=== PATIENT | male | born 1980 | race Caucasian/White ===

== ENCOUNTER 2020-05-14 09:49 | Emergency (ER) | payer OTHER, SELFPAY ==
--- NOTE | 2020-05-14 09:59 | DI.RAD.S_ITS ---
PROCEDURE: XR CHEST 1V INDICATIONS: Hiccups, vomiting, chest pain TECHNIQUE: One view of the chest was acquired. COMPARISON: None. FINDINGS: Surgical changes and devices: None. Lungs and pleura: Lungs are clear. No pleural effusions or pneumothorax. Mediastinum: Mediastinal contours appear normal. Heart size is normal. Bones and chest wall: No suspicious bony lesions. Overlying soft tissues appear unremarkable. IMPRESSION: No acute cardiopulmonary pathology. Dictated by: Theodore Chaudhary M.D. on 05/14/2020 at 9:24 Approved by: Theodore Chaudhary M.D. on 05/14/2020 at 9:37
[2020-05-14 10:02] VITALS: PULSE 143; RESP 15; TEMP 36.1; O2SAT 98; BMI 34.7
[2020-05-14 10:16] LABS: Add Manual Diff / Slide Review NO; Basophils Absolute Auto 0 /uL (0-100); Basophils Percent Auto 0.4 % (0-2); Eosinophils Absolute Auto 0 /uL (0-450); Eosinophils Percent Auto 0.1 % (2-4); Hematocrit 42.1 % (41-53); Hemoglobin 14.9 g/dL (13.5-17.5); Lymphocytes Absolute Auto 2600 /uL (1100-4500); Lymphocytes Percent Auto 31.8 % (25-40); Mean Corpuscular HGB Conc 35.4 % (30-36); Mean Corpuscular Hemoglobin 29.5 PG (26-34); Mean Corpuscular Volume 83.2 fL (80-100); Monocytes Absolute Auto 700 /uL (0-900); Monocytes Percent Auto 7.9 % (3-14); Neutrophils Absolute Auto 5000 /uL (1500-7000); Neutrophils Percent Auto 59.8 % (50-75); Platelet Count 352 X10^3/uL (150-400); Red Blood Cell Count 5.06 X10^6/uL (4.5-5.9); Red Cell Distribution Width 13.7 % (11.6-14.8); White Blood Cell Count 8.3 X10^3/uL (4.5-11.0)
--- NOTE | 2020-05-14 10:31 | ED.GENADULT ---
HPI - General Adult General Chief complaint: Abdominal Pain Stated complaint: 3 days hiccups/vomiting/nausea Time Seen by Provider: 05/14/20 09:58 Source: patient Mode of arrival: Ambulatory Limitations: no limitations History of Present Illness HPI narrative: Patient is a 40-year-old male here for evaluation of nausea and hiccups and vomiting for the past couple days. He states that symptoms very similar to this occurred 2 years ago. He states he was seen in outside facility and was ultimately told that it was related to marijuana. He has since stopped smoking marijuana his symptoms have resolved until a couple days ago when the symptoms returned. He states he is not smoking marijuana. They did ask her after drinking some vodka. He states that every time that he eats he develops nausea and then hiccups. He is not having any bowel changes. He is not on any reflux medications. He is not having any chest pain. He did try drinking some baking soda and water and vomited afterwards. Related Data Previous Rx's Medication Instructions Recorded esomeprazole magnesium 20 mg PO DAILY #30 cap 05/14/20 ondansetron 4 mg PO Q6H PRN #14 tab 05/14/20 Allergies Allergy/AdvReac Type Severity Reaction Status Date / Time No Known Drug Allergies Allergy Verified 05/14/20 10:07 Review of Systems Constitutional Constitutional: Denies fever(s) Cardiovascular Cardiovascular: Denies chest pain and Denies dyspnea Respiratory Respiratory: Denies dyspnea Gastrointestinal Gastrointestinal: Denies abdominal pain, Denies change in bowel habits, Reports nausea and Reports vomiting Comments: Hiccups Genitourinary Genitourinary: Denies dysuria Genitourinary: Denies dysuria Musculoskeletal Musculoskeletal: Denies arthralgias and Denies myalgias Integumentary/Breasts Skin/Breast: Denies rash Neurologic Neurologic: Denies behavioral changes Psychiatric Psychiatric: Denies behavioral changes Hematologic/Lymphatic On Anticoagulants: No Allergic/Immunologic Allergic/Immunologic: Denies urticaria Patient History Medical History Patient denies medical problems Social History Smoking Status: Never smoker Smoking Status: Never smoker alcohol intake frequency: 0-2 drinks per day Substance Use Type: marijuana Exam Initial Vital Signs Initial Vital Signs: Vital Signs Temperature 97.0 F L 05/14/20 10:02 Pulse Rate 143 H 05/14/20 10:02 Respiratory Rate 15 05/14/20 10:02 Pulse Oximetry 98 05/14/20 10:02 Const General: cooperative and comfortable Limitations: mental status not altered HENNV Head: normal to inspection and normocephalic Resp Effort & Inspection: normal respiratory effort Auscultation: clear to auscultation bilaterally Cardio Rate: regular rate Rhythm: regular rhythm GI Inspection: non-distended Palpation: soft and No tender Skin Lesions: no lesions Rashes: no rashes Neuro General: patient alert and patient awake Cognition: normal cognition Speech: speech normal Extrem General: normal to inspection and capillary refill normal Psych Appearance: grossly normal and well kempt Course Orders Ordered: ED Orders 05/14/20 09:59 XR chest 1V Stat 05/14/20 10:08 Complete Blood Count AUTO DIFF Stat Comprehensive Metabolic Panel Stat Lipase Stat Troponin & CK Cardiac Panel Stat Vital Signs Vital signs: Vital Signs - 8 hr 05/14/20 10:02 05/14/20 10:33 05/14/20 10:35 Temperature 97.0 F L Pulse Rate 143 H 52 L 53 L Respiratory Rate 15 15 Blood Pressure 149/99 H Pulse Oximetry 98 99 Medical Decision Making Lab Data Lab results reviewed: Yes I reviewed the patient's lab results. Result diagrams: 05/14/20 10:08 05/14/20 10:08 Labs: Lab Results 05/14/20 05/14/20 Range/Units 10:08 10:08 WBC 8.3 (4.5-11.0) X10^3/uL RBC 5.06 (4.5-5.9) X10^6/uL Hgb 14.9 (13.5-17.5) g/dL Hct 42.1 (41-53) % MCV 83.2 (80-100) fL MCH 29.5 (26-34) PG MCHC 35.4 (30-36) % RDW 13.7 (11.6-14.8) % Plt Count 352 (150-400) X10^3/uL Neut % (Auto) 59.8 (50-75) % Lymph % (Auto) 31.8 (25-40) % [place] % (Auto) 7.9 (3-14) % Eos % (Auto) 0.1 L (2-4) % Baso % (Auto) 0.4 (0-2) % Neut # (Auto) 5000 (8954-9916) /uL Lymph # (Auto) 2600 (9208-8516) /uL [place] # (Auto) 700 (0-900) /uL Eos # (Auto) 0 (0-450) /uL Baso # (Auto) 0 (0-100) /uL Sodium 137 (137-145) mmol/L Potassium 3.4 (3.4-5.1) mmol/L Chloride 99 (98-107) mmol/L Carbon Dioxide 30 (22-32) mmol/L BUN 20 (9-20) mg/dL Creatinine 0.96 (0.66-1.25) mg/dL Estimated GFR > 60.0 (>60) mL/min BUN/Creatinine Ratio 20.8 (6-22) Glucose 124 H (70-100) mg/dL Calcium 9.9 (8.4-10.2) mg/dL Total Bilirubin 1.1 (0.2-1.3) mg/dL AST 23 (17-59) IU/L ALT 18 (<50) IU/L Alkaline Phosphatase 69 (38-126) U/L Total Creatine Kinase 72 (55-170) U/L CK-MB (CK-2) TNP CK-MB (CK-2) Rel Index TNP Troponin I < 0.012 (0.01-0.034) ng/mL Total Protein 8.2 (6.3-8.2) g/dL Albumin 4.8 (3.5-5.0) g/dL Globulin 3.4 (1.7-4.1) g/dL Albumin/Globulin Ratio 1.4 (1.0-2.8) Lipase 45 (23-300) U/L Imaging Data Chest x-ray: Radiologist's Impression: [address] [id number] ReportSigned Patient: Rebekah Kelley RMR#: [id number]: 1980Acct:[id number]/Sex: 40 / MDate of Service: 05/14/20Loc: EDAccession Number: [id number] Procedure: XR chest 1V Ordering Provider: Salo Ca D.O. PROCEDURE: XR CHEST 1V INDICATIONS: Hiccups, vomiting, chest pain TECHNIQUE: One view of the chest was acquired. COMPARISON: None. FINDINGS: Surgical changes and devices: None. Lungs and pleura: Lungs are clear. No pleural effusions or pneumothorax. Mediastinum: Mediastinal contours appear normal. Heart size is normal. Bones and chest wall: No suspicious bony lesions. Overlying soft tissues appear unremarkable. IMPRESSION: No acute cardiopulmonary pathology. Dictated by: Theodore Chaudhary M.D. on 05/14/2020 at 9:24 Approved by: Theodore Chaudhary M.D. on 05/14/2020 at 9:37 ECG Data Attestation: I personally reviewed and interpreted this ECG as follows: Prior ECG tracings: not available for review Interpretation: Sinus bradycardia Normal axis Normal QRS Normal QTC Sinus arrhythmia Ventricular rate [address] T wave changes MDM Narrative Medical decision making narrative: Patient has not had any vomiting or hit cup since being here in the ER. His workup here is unremarkable. His exam is benign. Unsure the exact etiology but I feel that we can hold on any radiologic studies other than the chest x-ray. Plan will be is to start him on nausea medication. Will also start him on a PPI. He will also talk with his primary doctor about a referral to see Gastroenterology to have a upper endoscopy. He was given return precautions and follow-up instructions. He expressed understanding and agreement. Discharge Plan Departure Patient Disposition: Home Clinical Impression: Nausea, Hiccups Instructions: DI for Nausea -- Adult Activity Restrictions/Additional Instructions: I do recommend you contact your primary doctor to discuss the indications for referral to see Gastroenterology and to have a upper endoscopy. Start taking the medications that were electronically transmitted to the pharmacy of your choice as directed. Return to the emergency department for any new or worsening symptoms Prescriptions: New ondansetron 4 mg tablet,disintegrating 4 mg PO Q6H PRN (Reason: nausea and vomiting) Qty: 14 RF: 0 esomeprazole magnesium 20 mg capsule,delayed release(DR/EC) 20 mg PO DAILY Qty: 30 RF: 0
[2020-05-14 10:33] VITALS: PULSE 52
[2020-05-14 10:35] VITALS: BP 149/99; PULSE 53; RESP 15; O2SAT 99
[2020-05-14 10:38] LABS: Alanine Aminotransferase 18 IU/L (<50); Albumin 4.8 g/dL (3.5-5.0); Albumin Globulin Ratio 1.4 (1.0-2.8); Alkaline Phosphatase 69 U/L (38-126); Aspartate Aminotransferase 23 IU/L (17-59); BUN Creatinine Ratio 20.8 (6-22); Bilirubin Total 1.1 mg/dL (0.2-1.3); Blood Urea Nitrogen 20 mg/dL (9-20); Calcium 9.9 mg/dL (8.4-10.2); Carbon Dioxide 30 mmol/L (22-32); Chloride 99 mmol/L (98-107); Creatine Kinase 72 U/L (55-170); Estimated Glomerular Filt Rate > 60.0 mL/min (>60); Globulin 3.4 g/dL (1.7-4.1); Glucose 124 mg/dL (70-100); HEMOLYSIS < 15 (0-50); Lipase 45 U/L (23-300); Potassium 3.4 mmol/L (3.4-5.1); Sodium 137 mmol/L (137-145); Total Protein 8.2 g/dL (6.3-8.2)
[2020-05-14 10:49] LABS: Troponin I < 0.012 ng/mL (0.01-0.034)
[2020-05-14 11:55] VITALS: BP 140/83; PULSE 50; RESP 16; O2SAT 98
--- NOTE | 2020-05-15 09:54 | PC.NURSE ---
pt called to ask if he should come back. I asked if he was able to keep water down. pt states he can but still can't hold food down. pt states has an appt with pcp tomorrow. wondering if he should come in, i explained he can f/u with pcp tomorrow or come in today. we are here all day and if he thinks he needs to he is welcome to come in.
== END 2020-05-14 12:03 | disposition home or self-care (01) ==
PROVIDERS: Emergency Provider Emergency Medicine
DX: R11.2 Nausea with vomiting, unspecified (principal); R06.6 Hiccough; R07.9 Chest pain, unspecified; R00.1 Bradycardia, unspecified
CPT/HCPCS: 71045; 80053; 82550; 83690; 84484; 85025; 93005; 99283; 99284